=== PATIENT | male | born 1960 | race African-American/Black ===

== ENCOUNTER 2017-06-16 08:08 | Emergency (ER) | payer MEDICARE, OTHER ==
[2017-06-16] MEDS: HYDROmorphONE 2 MG/ML SYG IM (08:43)
[2017-06-16] MEDS: ONDANSETRON (ODT) 4 MG TAB ODT (08:43)
[2017-06-16] MEDS: predniSONE 20 MG TAB PO (08:43)
[2017-06-16] MEDS: KETOROLAC 30 MG INJ IM (09:59)
== END 2017-06-16 10:50 | disposition home or self-care (01) ==
LOC: E/R 08:08
DX: M10.9 Gout, unspecified (principal); R07.9 Chest pain, unspecified; I25.10 Atherosclerotic heart disease of native coronary artery without angina pectoris; I10 Essential (primary) hypertension; Z79.82 Long term (current) use of aspirin
CPT/HCPCS: 96372; 99284-25

== ENCOUNTER 2017-09-19 15:26 | Emergency (ER) | payer MEDICARE, OTHER ==
[2017-09-19] MEDS: HYDROCODONE/APAP (10/325) TAB PO (15:52)
[2017-09-19] MEDS: ONDANSETRON (ODT) 4 MG TAB ODT (15:52)
== END 2017-09-19 18:14 | disposition home or self-care (01) ==
LOC: E/R 15:26
DX: S02.31XA Fracture of orbital floor, right side, initial encounter for closed fracture (principal); I10 Essential (primary) hypertension; I25.10 Atherosclerotic heart disease of native coronary artery without angina pectoris; S05.01XA Injury of conjunctiva and corneal abrasion without foreign body, right eye, initial encounter; W06.XXXA Fall from bed, initial encounter; Y92.9 Unspecified place or not applicable; Z79.82 Long term (current) use of aspirin
CPT/HCPCS: 70450; 70480; 99285-25

== ENCOUNTER 2018-03-19 09:59 | Emergency (ER) | payer MEDICARE, OTHER ==
[2018-03-19 10:28] LABS: ADD MAN DIFF? NO
[2018-03-19 10:31] LABS: BASOPHIL # 0.1 10^3/ul (0.0-0.1); BASOPHILS % 0.5 % (0.0-2.0); EOSINOPHILS # 0.3 10^3/ul (0.0-0.5); EOSINOPHILS % 3.1 % (0.0-7.0); HEMATOCRIT 40.8 % (42.0-52.0); HEMOGLOBIN 12.6 g/dl (14.0-18.0); LYMPHOCYTES # 3.7 10^3/ul (0.8-2.9); LYMPHOCYTES % 34.3 % (15.0-51.0); MEAN CORPUSCULAR HEMOGLOBIN 25.6 pg (29.0-33.0); MEAN CORPUSCULAR HGB CONC 30.9 g/dl (32.0-37.0); MEAN CORPUSCULAR VOLUME 82.9 fl (82.0-101.0); MONOCYTE # 0.6 10^3/ul (0.3-0.9); MONOCYTES % 5.4 % (0.0-11.0); NEUTROPHIL # 6.1 10^3/ul (1.6-7.5); NEUTROPHILS % 56.4 % (39.0-77.0); PLATELET COUNT 258 10^3/UL (140-415); RED BLOOD COUNT 4.92 10^6/ul (4.70-6.10); RED CELL DISTRIBUTION WIDTH 16.2 % (11.5-14.5)
[2018-03-19 10:31] LABS: WHITE BLOOD COUNT 10.8 10^3/ul (4.8-10.8)
[2018-03-19 11:57] LABS: ALANINE AMINOTRANSFERASE 53 IU/L (13-69); ALBUMIN 3.6 g/dl (3.3-4.9); ALBUMIN/GLOBULIN RATIO 0.97; ALKALINE PHOSPHATASE 79 IU/L (42-121); ANION GAP 8 (5-13); ASPARTATE AMINO TRANSFERASE 64 IU/L (15-46); BLOOD UREA NITROGEN 9 mg/dl (7-20); CALCIUM 8.6 mg/dl (8.4-10.2); CARBON DIOXIDE 22 mmol/L (21-31); CHLORIDE 111 mmol/L (97-110); CREATININE 0.62 mg/dl (0.61-1.24); Estimated GFR > 60 mL/min (>60); GLUCOSE 176 mg/dl (70-220); POTASSIUM 3.7 mmol/L (3.5-5.1); SODIUM 141 mmol/L (135-144); TOTAL PROTEIN 7.3 g/dl (6.1-8.1)
[2018-03-19 12:08] LABS: B-TYPE NATRIURETIC PEPTIDE 223 PG/ML (0-125); TROPONIN-I < 0.012 ng/ml (0.000-0.120)
== END 2018-03-19 16:30 | disposition left against medical advice (07) ==
LOC: E/R 09:59
DX: R07.9 Chest pain, unspecified (principal); I25.10 Atherosclerotic heart disease of native coronary artery without angina pectoris; Z79.82 Long term (current) use of aspirin
CPT/HCPCS: 71045; 80053; 82962; 83880; 84484; 85025; 93005; 99285-25